=== PATIENT | female | born 1970 | race Caucasian/White ===

== ENCOUNTER 2022-05-26 21:33 | Emergency (ER) | payer SELFPAY ==
[~2022-05-26] VITALS: Ht 162.6 cm; Wt 78.8 kg
[2022-05-26 21:38] VITALS: BP 155/85
== END 2022-05-26 23:24 | disposition left against medical advice (07) ==
LOC: ER 21:33
DX: Z53.21 Procedure and treatment not carried out due to patient leaving prior to being seen by health care provider (principal)

== ENCOUNTER 2023-08-10 10:04 | Emergency (ER) | payer OTHER ==
[~2023-08-10] VITALS: Ht 165.1 cm; Wt 81.0 kg
[2023-08-10 10:35] VITALS: TEMP 98.6; O2SAT 99
[2023-08-10 11:06] LABS: HEMATOCRIT. 42.6 % (36.0-48.0); HEMOGLOBIN. 14.1 g/dL (12.0-16.0); MEAN CORPUSCULAR HEMOGLOBIN 30.5 pg (28.0-32.0); MEAN CORPUSCULAR HGB CONC 33.1 g/dL (31.0-37.0); MEAN CORPUSCULAR VOLUME 91.9 fL (81.0-99.0); MEAN PLATELET VOLUME 9.2 fl (7.4-10.4); PLATELET 260 x1000/uL (130-400); RED BLOOD CELL COUNT 4.64 mill/uL (4.2-5.4); RED CELL DISTRIBUTION WIDTH 13.8 % (11.6-14.6)
[2023-08-10 11:11] LABS: INR 1.1; PROTHROMBIN TIME 11.9 sec (9.6-11.0)
[2023-08-10 11:12] LABS: DIFFERENTIAL COMMENT 1
[2023-08-10 11:14] LABS: WHITE BLOOD COUNT 50.4 x1000/uL (4.5-11.0)
[2023-08-10 12:04] LABS: ALANINE AMINOTRANSFERASE 11 IU/L (10-49); ALBUMIN 3.8 g/dL (3.2-4.8); ASPARTATE AMINOTRANSFERASE 17 IU/L (<34); BILIRUBIN TOTAL 0.6 mg/dL (0.1-1.0); CALCIUM 9.4 mg/dL (8.7-10.4); CARBON DIOXIDE 25 mEq/L (21-32); CHLORIDE 90 mEq/L (98-107); CREATININE 1.4 mg/dL (0.6-1.0); POTASSIUM 3.8 mEq/L (3.5-5.1); PROTEIN TOTAL 7.2 g/dL (6.0-8.3); SODIUM 128 mEq/L (136-145); THYROID STIMULATING HORMONE 1.76 uIU/mL (0.55-4.78); UREA NITROGEN BLOOD 24 mg/dL (9-23)
[2023-08-10] MEDS ORDERED: MORPHINE SULFATE 4 MG/ML CPJ (NOT FOR IM USE) IV STA (12:06)
[2023-08-10] MEDS ORDERED: ONDANSETRON HCL 4MG/2ML INJ IV STA (12:06)
[2023-08-10] MEDS ORDERED: SODIUM CHLORIDE 0.9% 1,000 ML IV ONE ×3 (12:15→15:45)
[2023-08-10 13:27] LABS: GLUCOSE 513 mg/dL (70-105)
[2023-08-10] MEDS ORDERED: INSULIN REGULAR (HUMULIN R) 300UNITS/3ML VIAL SUBCUT ONE (14:15)
[2023-08-10] MEDS ORDERED: IOHEXOL-300 100 ML BOTTLE ONE (15:01)
[2023-08-10 15:02] LABS: PLATELET ESTIMATE NORMAL
[2023-08-10] MEDS ORDERED: PIPERACILLIN/TAZ 3.375G PREMIX 50 ML IV ONE (15:45)
[2023-08-10] MEDS ORDERED: VANCOMYCIN 1G PREMIX 200 ML IV ONE (15:45)
[2023-08-10 21:23] VITALS: BP 168/95; PULSE 114; RESP 19
[2023-08-10] MEDS ORDERED: ONDANSETRON 4MG ODT PO ONE (22:15)
== END 2023-08-10 22:00 | disposition short-term general hospital (02) ==
LOC: ER 10:04
DX: E11.65 Type 2 diabetes mellitus with hyperglycemia (principal); M54.2 Cervicalgia; I10 Essential (primary) hypertension; Z98.890 Other specified postprocedural states
CPT/HCPCS: 80053; 82962; 84443; 85025; 85610; 87040; 36415; 70491; 96368; 96361; 96365; 96372; 96375; 99285; Q9967; J1815; J2405; J2543; J3370; J2270; J7030; Z7610 ×2

== ENCOUNTER 2023-10-27 10:59 | Emergency (ER) | payer SELFPAY ==
[~2023-10-27] VITALS: Ht 162.6 cm; Wt 72.6 kg
[2023-10-27 11:25] VITALS: BP 163/100; PULSE 84; RESP 16; TEMP 98.7; O2SAT 99
[2023-10-27] MEDS ORDERED: AMOX1TAB16 MT (13:09)
[2023-10-27] MEDS ORDERED: HYDR-4001 MT (13:09)
[2023-10-27] MEDS ORDERED: NAPR-1176 MT (13:09)
[2023-10-27] MEDS ORDERED: AMOXICILLIN/POTASSIUM CLAVULANATE 875/125MG TAB PO ONE (13:15)
== END 2023-10-27 13:49 | disposition home or self-care (01) ==
LOC: ER 10:59
DX: H66.92 Otitis media, unspecified, left ear (principal); G51.0 Bell's palsy; F41.9 Anxiety disorder, unspecified; F32.A Depression, unspecified; E11.9 Type 2 diabetes mellitus without complications; I10 Essential (primary) hypertension; Z90.710 Acquired absence of both cervix and uterus; Z90.49 Acquired absence of other specified parts of digestive tract
CPT/HCPCS: 99283